=== PATIENT | female | born 1940 | race Caucasian/White ===

== ENCOUNTER 2025-01-30 05:57 | Day surgery (SDC) | payer OTHER, SELFPAY ==
[2025-01-30] VITALS (9 sets, daily range): BP systolic 105–132; BP diastolic 61–90; BMI 27.2
--- NOTE | 2025-01-30 17:33 | ITS.CL.PN ---
Electrical Maintenance Engineer - Procedure Note
Procedure
Procedure Note:
CARDIAC CATHETERIZATION REPORT
Date of Procedure: 01/30/2025
Referring: Dr. Artur Ni MD
Indication: moderate to severe symptomatic aortic stenosis
PROCEDURE(S)
1. right heart catheterization
2. left heart catheterization
3. coronary angiography
ACCESS
1. 6F right radial artery (closure: radial band)
2. 5F right antecubital vein (closure: manual hemostasis)
CATHETERS
1. 5F [place]
2. 6F JR4
3. 6F JL3.5
4. 6F [place] dual-lumen
MODERATE SEDATION: 35 minutes of moderate sedation was utilized. An independent medical center director was present to assist with and help manage the patient's level of consciousness and physiologic status.
HEMODYNAMIC DATA
LV 140/2 (EDP 18) mmHg
AO 118/52 (mean 80) mmHg
RA 11 mmHg
RV 36/5 (EDP 12) mmHg
PA 40/19 (mean 28) mmHg
PCWP 19 mmHg
SaO2 95.4%
SvO2 63.9%
Hb 10.4 g/dL
CO/CI 4.98/2.81 L/min/m2
SVR 1109 dsc*-5
PVR 1.8 [place] units
Valve study: mean gradient 19.82 mmHg at HR 83 giving valve area of 1.04 cm2 (indexed 0.59 cm2/m2) and SVI of 33.9 mL/m2
CORONARY ANGIOGRAPHY
Dominance: right
LM: Large, normal
LAD: Large vessel giving rise to a large D1 and wrapping around the apex. There are mild luminal irregularities only.
LCx: Moderate caliber vessel giving rise to a moderate caliber high rising OM1/ramus, small OM2, small OM3, and very small LPL branch. There are mild luminal irregularities only.
RCA: Large vessel giving rise to a moderate caliber RPDA, small RPL1, moderate caliber RPL2, and small RPL3. There are mild luminal irregularities only.
RADIATION: dose 215 mGy; DAP 19.2 Gy*cm2; fluoroscopy time 5.1 min
CONCLUSIONS
1. Mildly elevated biventricular filling pressures, mild pulmonary hypertension, and normal cardiac output
2. Nonobstructive coronary artery disease in a right dominant system with mild luminal irregularities only
3. Aortic valve study with dual-lumen catheter demonstrates low-flow low-gradient moderate to severe aortic valve stenosis
RECOMMENDATION
1. Obtain TAVR protocol CT chest angiography with calcium scoring to better characterize severity of aortic valve disease. Pending this, we will discuss her appropriateness and candidacy for TAVR at multidisciplinary valve meeting.
2. Primary prevention of CAD.
Copy to: Dr. Artur Ni MD (structural engineering project manager); Dr. Livier Barrera MD (PCP)
Signed: Armand Ingram MD, PhD
== END 2025-01-30 11:59 | disposition home or self-care (01) ==
LOC: CATH 05:57
PROVIDERS: ATTENDING PHYSICIAN Student in an Organized Health Care Education/Training Program; FAMILY PHYSICIAN Student in an Organized Health Care Education/Training Program; OTHER PHYSICIAN Internal Medicine Cardiovascular Disease
DX: I35.0 Nonrheumatic aortic (valve) stenosis (principal); R06.00 Dyspnea, unspecified; R55 Syncope and collapse; I48.19 Other persistent atrial fibrillation; I10 Essential (primary) hypertension; E78.5 Hyperlipidemia, unspecified; E03.9 Hypothyroidism, unspecified; K21.9 Gastro-esophageal reflux disease without esophagitis; Z87.891 Personal history of nicotine dependence; Z79.01 Long term (current) use of anticoagulants; Z79.82 Long term (current) use of aspirin
CPT/HCPCS: 99153; 99152; C1769; C1894; 93460

== ENCOUNTER → 2025-02-13 09:24 | Outpatient (REF) | payer OTHER, SELFPAY | LOC: RAD 09:24 | PROVIDERS: ATTENDING PHYSICIAN Nurse Practitioner Acute Care | DX: I35.0 Nonrheumatic aortic (valve) stenosis (principal) | CPT/HCPCS: 74174; 75572; Q9967 ==